=== PATIENT | female | born 1985 | race Caucasian/White ===

== ENCOUNTER 2024-11-28 22:22 | Inpatient (IN) | payer MEDICAID, OTHER, SELFPAY ==
[2024-11-28 22:36] VITALS: BP 107/68; PULSE 81; RESP 18; TEMP 36.6; O2SAT 97; BMI 24.2
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
--- NOTE | 2024-11-28 23:36 | PC.NURSE ---
This administrative underwriter assumed care of this Pt at 2300. Pt awake, calm and cooperative, watching tv, ambulating independently with steady gait.
[2024-11-28 23:51] LABS: MANUAL DIFF FLAG NO
[2024-11-28 23:52] LABS: Basophils Absolute Auto 0.1 X10*3/uL (0.0-0.2); Basophils Percent Auto 0.9 % (0-2); Eosinophils Absolute Auto 0.2 X10*3/uL (0.0-0.4); Eosinophils Percent Auto 3.4 % (0-4); Hematocrit 35.9 % (37.0-47.0); Hemoglobin 12.4 g/dl (12.0-16.0); Imm Gran Abs Auto 0.01 X10*3/uL (0.00-0.03); Imm Gran Pct Auto 0.2 % (0.0-0.4); Lymphocytes Absolute Auto 2.3 X10*3/uL (1.2-4.9); Lymphocytes Percent Auto 35.6 % (20-40); Mean Corpuscular HGB Conc 34.5 g/dl (31.0-35.0); Mean Corpuscular Hemoglobin 30.4 pg (27.0-33.0); Mean Platelet Volume 9.8 fL (9.4-12.3); Monocytes Absolute Auto 0.4 X10*3/uL (0.1-1.2); Monocytes Percent Auto 5.8 % (2-11); Neutrophils Absolute Auto 3.5 x10*3/uL (2.0-8.3); Neutrophils Percent Auto 54.1 % (45-73); Platelet Count 262 X10*3/uL (160-400); Red Blood Count 4.08 X10*6/uL (4.20-5.50); Red Cell Distribution Width 11.9 % (11.0-16.0); White Blood Count 6.5 X10*3/uL (4.8-10.8)
[2024-11-28 23:52] LABS: UPreg QC Valid YES; Urine Pregnancy NEGATIVE (NEGATIVE)
--- NOTE | 2024-11-29 00:06 | PC.NURSE ---
Pt requesting to leave due to not being able to have personal bag with cellphone, headphones and spiral notebook, Pt informed about policy. Pt attempted to bolt out the door, Pt redirected by [facility].
[2024-11-29 00:07] LABS: Amphetamine Screen Urine Not Detected (Not Detect); Barbiturates, Urine Not Detected (Not Detect); Benzodiazepines Screen Urine POSITIVE (Not Detect); Buprenorphine Scr Not Detected (Not Detect); Cannabinoid Screen Urine POSITIVE (Not Detect); Cocaine Screen Urine Not Detected (Not Detect); Fentanyl, urine Not Detected (Not Detect); Methadone Screen, Urine Not Detected (Not Detect); Opiate Screen Urine Not Detected (Not Detect); Oxycodone Screen Urine Not Detected (Not Detect); Phencyclidine Screen Urine Not Detected (Not Detect)
[2024-11-29 00:09] LABS: Alanine Aminotransferase 19 U/L (0-31); Albumin Level 4.3 g/dL (3.5-5.0); Alkaline Phosphatase 68 U/L (39-117); Anion Gap 13 (12-20); Aspartate Amino Transferase 20 U/L (5-31); Bilirubin Total 0.2 mg/dL (0.0-1.0); Blood Urea Nitrogen 23 mg/dL (9-16); Calcium 9.1 mg/dL (8.4-10.2); Carbon Dioxide 26 mmol/L (22-29); Chloride 107 mmol/L (96-108); Creatinine Clr Calc Pharmacy 91.8; Estimated Glomerular Filt Rate > 60; Ethanol 10 mg/dL; Glucose Random 97 mg/dL (60-115); Potassium 3.7 mmol/L (3.3-5.1); Sodium 142 mmol/L (135-145); Total Protein 7.4 g/dL (6.5-8.0)
[2024-11-29 00:32] LABS: Acetaminophen LAB < 3 mcg/mL (<30); Salicylate < 5.0 mg/dL (15-30)
--- NOTE | 2024-11-29 01:02 | PC.NURSE ---
Med rec done, Pt able to verbalize and confirm home meds.
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
[2024-11-29] MEDS: Nicotine 14 MG PATCH.TD24 TRANSDERMA ×2 (01:58→20:44)
[2024-11-29] MEDS: LORazepam 1 MG TABLET PO (01:59)
[2024-11-29] MEDS: Venlafaxine HCl ER 75 MG CAP.ER.24H PO (08:36)
[2024-11-29 09:11] VITALS: RESP 16
--- NOTE | 2024-11-29 09:11 | PC.NURSE ---
Assumed care of patient at 0645, patient appears to be in no apparent distress this am, calm and cooperative, ate breakfast and took morning medications without issue. Continue plan of care for CARE team follow up
--- NOTE | 2024-11-29 11:54 | PHA.MEDREC ---
Pharmacy Consult ? Medication Reconciliation Pharmacy has REVIEWED the medication reconciliation DONE BY NURSING.
[2024-11-29 17:48] VITALS: BP 119/74; PULSE 85; RESP 20; TEMP 36.6; O2SAT 99
[2024-11-30] MEDS: ALPRAZolam 0.5 MG TABLET PO ×2 (00:18→22:48)
--- NOTE | 2024-11-30 00:20 | PC.NURSE ---
pt feeling anxiouse and takes xanax at home with no allergic reactions. pt is calm and cooperative. follows commands.
[2024-11-30 06:27] VITALS: BP 105/65; PULSE 80; RESP 16; TEMP 36.4; O2SAT 96
[2024-11-30 06:29] VITALS: BP 105/65; PULSE 80; RESP 16; TEMP 36.4
[2024-11-30] MEDS: Venlafaxine HCl ER 75 MG CAP.ER.24H PO (08:46)
[2024-11-30 20:09] VITALS: BP 118/66; PULSE 74; RESP 16; TEMP 37.1; O2SAT 98
[2024-12-01] VITALS (7 sets, daily range): BP systolic 96–114; BP diastolic 54–71; PULSE 59–84; RESP 14–16; TEMP 36.2–37; O2SAT 97–99; BMI 26.9
--- NOTE | 2024-12-01 05:59 | PC.NURSE ---
Patient slept through the night, no distress observed/reported, 15 minutes safety check, no behavior and safety concerns, meds and meals compliant, disposition per care team is section-12 inpatient bed search, will continue to monitor
[2024-12-01] MEDS: Venlafaxine HCl ER 75 MG CAP.ER.24H PO (08:58)
[2024-12-01] MEDS: Omeprazole 20 MG CAPSULE.DR PO (09:24)
[2024-12-01 09:42] LABS: Appearance Urine Clear; Color Urine Yellow; Glucose Urine UA Negative (Negative); Leukocyte Esterase Urine Negative (Negative); Nitrite Urine Negative (Negative); UMIC TRIGGER UACC YES; Urine Blood Moderate (2+) (Negative); Urine Ketones Trace mg/dL (Negative); Urine Protein Negative (Neg-Trace)
[2024-12-01 09:48] LABS: Bacteria Urine 2+ (None Seen); Hyaline Casts Urine 0-2 /LPF (0-2); WBC Urine 0-5 /HPF (0-5)
[2024-12-01] MEDS: Nicotine 21 MG PATCH.TD24 TRANSDERMA (10:21)
[2024-12-01] MEDS: diazePAM 10 MG/2 ML CARTRIDGE 5 MG IM (10:47)
[2024-12-01] MEDS: OLANZapine 10 MG VIAL 5 MG IM (10:47)
--- NOTE | 2024-12-01 10:51 | PC.NURSE ---
this RN assisted w/ chemical restraint s/p pendant push in the pod. unable to scan barcode's on medication d/t emergent situation/discarding medication. medication wasted w/ CAMDEN Mata.
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
--- NOTE | 2024-12-01 17:23 | PC.NURSE ---
Pt remains calm/cooperative at this time
--- NOTE | 2024-12-01 19:19 | PC.NURSE ---
patient appears to remain asleep presently respirations are even and unlabored patient appears in no distress
[2024-12-01] MEDS: ALPRAZolam 0.5 MG TABLET PO (21:47)
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
--- NOTE | 2024-12-02 02:39 | PC.ADMIT ---
admission note/continued information-in regards to effexor, patient reports that she opens the cap and ''removes 90 balls'' then takes the remainder as her dose. reports she has been doing this for ''a year'' reports she was allowed to do this in the ER.
[2024-12-02 07:20] VITALS: BP 100/56; PULSE 77; RESP 18; TEMP 36.4; O2SAT 96
[2024-12-02 08:03] LABS: Estimated Average Glucose 111 mg/dL; Hemoglobin A1C 125.2945 umol/L; Hemoglobin A1c % 5.5 % (<6.0); Total Hemoglobin (HGBA1C) 3392.5996 umol/L
[2024-12-02 08:10] LABS: Anion Gap 12 (12-20)
[2024-12-02 08:18] LABS: Alanine Aminotransferase 14 U/L (0-31); Albumin Level 4.3 g/dL (3.5-5.0); Aspartate Amino Transferase 24 U/L (5-31); Bilirubin Total 0.4 mg/dL (0.0-1.0); Blood Urea Nitrogen 25 mg/dL (9-16); Calcium 9.1 mg/dL (8.4-10.2); Carbon Dioxide 27 mmol/L (22-29); Chloride 107 mmol/L (96-108); Cholesterol 201 mg/dL (<200); Creatinine Clr Calc Pharmacy 95.6; Estimated Glomerular Filt Rate > 60; Glucose Random 93 mg/dL (60-115); HDL Cholesterol 36 mg/dL (>40); LDL Cholesterol Calculated 139 mg/dL (<100); Potassium 4.3 mmol/L (3.3-5.1); Sodium 142 mmol/L (135-145); Total Protein 7.4 g/dL (6.5-8.0); Triglycerides 131 mg/dL (<150)
[2024-12-02 08:35] LABS: Alkaline Phosphatase 63 U/L (39-117)
[2024-12-02 08:37] LABS: TSH reflex Free T4 1.62 uIU/mL (0.32-4.0)
--- NOTE | 2024-12-02 08:56 | MHC.CLN ---
CONSULT PT WITH ALLERGIES TO GLUTEN AND LACTOSE ADDED GLUTEN FREE DIET RESTRICTION AND LACTOSE CONTROLLED DIET TO CURRENT DIET ORDER KITCHEN AWARE MONITOR PO INTAKE
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
[2024-12-02] MEDS: Omeprazole 20 MG CAPSULE.DR PO (09:07)
[2024-12-02] MEDS: Venlafaxine HCl ER 75 MG CAP.ER.24H PO (09:07)
[2024-12-02] MEDS: Nicotine 21 MG PATCH.TD24 TRANSDERMA (09:08)
[2024-12-02 20:00] VITALS: BP 109/70; PULSE 95; RESP 16; TEMP 36.3; O2SAT 97
[2024-12-02] MEDS: Nicotine Polacrilex 2 MG GUM 4 MG BUCCAL (21:28)
[2024-12-02 22:28] VITALS: BP 126/83
[2024-12-02] MEDS: cloNIDine HCL 0.1 MG TABLET 0.05 MG PO (22:28)
[2024-12-02] MEDS: traZODone HCL 50 MG TABLET PO (23:21)
[2024-12-03 07:40] VITALS: BP 96/54; PULSE 73; RESP 16; TEMP 36.4; O2SAT 97
[2024-12-03] MEDS: buPROPion HCL 75 MG TABLET PO (09:00)
[2024-12-03] MEDS: Venlafaxine HCl ER 37.5 MG CAP.ER.24H PO (09:00)
[2024-12-03] MEDS: Omeprazole 20 MG CAPSULE.DR PO (09:00)
[2024-12-03] MEDS: Nicotine 21 MG PATCH.TD24 TRANSDERMA (09:47)
[2024-12-03] MEDS: ALPRAZolam 0.5 MG TABLET PO (09:53)
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
== END 2024-12-03 12:15 | disposition home or self-care (01) | DRG 882 ==
LOC: HO.ED 11-29 01:02 → HO.PADLT16 12-01 18:19
PROVIDERS: Admitting Provider Psychiatry & Neurology Psychiatry; Emergency Provider Internal Medicine; PCP Family Medicine; Visit Provider Psychiatry & Neurology Psychiatry
DX: F43.12 Post-traumatic stress disorder, chronic (principal); R45.851 Suicidal ideations; F17.210 Nicotine dependence, cigarettes, uncomplicated; Z71.6 Tobacco abuse counseling; Z63.4 Disappearance and death of family member; Z91.410 Personal history of adult physical and sexual abuse; Z79.899 Other long term (current) drug therapy
CPT/HCPCS: 36415; 80053; 80061; 80143; 80179; 80307; 81001; 81025; 83036; 84443; 85025; 99285; J2359; J3360; S9485

== ENCOUNTER → 2024-12-01 18:12 | Outpatient (BNV) | payer OTHER, SELFPAY | PROVIDERS: Admitting Provider Psychiatry & Neurology Psychiatry; Emergency Provider Internal Medicine; PCP Family Medicine; Visit Provider Psychiatry & Neurology Psychiatry | DX: F43.12 Post-traumatic stress disorder, chronic (principal) | CPT/HCPCS: 90792; 99239 ==